=== PATIENT | male | born 1970 | race Two or more races ===

== ENCOUNTER 2021-07-09 17:06 | Emergency (ER) | payer SELFPAY ==
[~2021-07-09] VITALS: Ht 160 cm; Wt 76.2 kg
[2021-07-09 17:11] VITALS: BP 183/103
[2021-07-09] MEDS ORDERED: LIDOCAINE MPF 2% 100 MG/5 ML VIAL INJ ONE (17:15)
[2021-07-09] MEDS ORDERED: BACITRACIN OINT 500 UNITS/GM PKT TP ONE (17:15)
[2021-07-09] MEDS ORDERED: LIDOCAINE MPF 1% 10 MG/ML VIAL INJ ONE (17:25)
[2021-07-09] MEDS ORDERED: BACI1PAC6 TP (17:45)
--- NOTE | 2021-07-09 17:52 | NUR ---
Patient discharged with v/s stable. Written and verbal after care instructions given and explained. Patient verbalized understanding. Ambulatory with steady gait. All questions addressed prior to discharge. Advised to follow up with PMD.
[2021-07-09 17:56] VITALS: BP 183/103
== END 2021-07-09 17:55 | disposition home or self-care (01) ==
LOC: MED 17:06
DX: S61.412A Laceration without foreign body of left hand, initial encounter (principal); Z90.49 Acquired absence of other specified parts of digestive tract; Z79.899 Other long term (current) drug therapy; W45.8XXA Other foreign body or object entering through skin, initial encounter; Y93.89 Activity, other specified; Y92.89 Other specified places as the place of occurrence of the external cause; Y99.8 Other external cause status
CPT/HCPCS: 12002; 90471; 90715; 99283; J2001